=== PATIENT | female | born 1955 | race Asian ===

== ENCOUNTER 2022-08-23 14:46 | Inpatient (IN) | payer OTHER ==
[~2022-08-23] VITALS: Ht 149.9 cm; Wt 44.5 kg
[2022-08-23 15:37] VITALS: BP_SYST 119
[2022-08-23] MEDS ORDERED: NACL 0.9% 1,000 ML IV ONE (16:30)
[2022-08-23] MEDS ORDERED: MORPHINE 4 MG INJ. 4 MG/ML VIAL IVP ONE (16:30)
[2022-08-23 16:52] LABS: BASOPHILS % (AUTO) 0.2 % (0.0-2.0); HEMATOCRIT 43.5 % (36-48); HEMOGLOBIN 14.6 g/dL (12.0-16.0); LYMPHOCYTES # (AUTO) 0.7 K/uL (1.0-5.5); LYMPHOCYTES % (AUTO) 4.6 % (20.5-51.5); MEAN CORPUSCULAR HEMOGLOBIN 32 pg (27-31); MEAN CORPUSCULAR HGB CONC 34 % (32-36); MEAN CORPUSCULAR VOLUME 95 fL (79.0-98.0); MONOCYTES # (AUTO) 0.6 K/uL (0.0-1.0); MONOCYTES % (AUTO) 3.5 % (1.7-9.3); NEUTROPHILS # (AUTO) 14.3 K/uL (1.8-7.7); NEUTROPHILS % (AUTO) 91.7 % (40.0-70.0); PLATELET COUNT (AUTO) 273 K/uL (130-430); RED BLOOD CELL COUNT(AUTO) 4.56 MIL/uL (4.2-6.2); WHITE BLOOD COUNT (AUTO) 15.6 K/uL (4.8-10.8)
[2022-08-23 17:01] LABS: CALCIUM 9.8 mg/dL (8.4-11.0); CREATININE 0.69 mg/dL (0.55-1.30)
[2022-08-23 17:06] LABS: ALBUMIN 4.1 g/dL (3.4-4.8); TOTAL BILIRUBIN 0.6 mg/dL (0.0-1.0)
[2022-08-23] MEDS ORDERED: LIP20 PO (20:15)
[2022-08-23] MEDS ORDERED: LEVO25CA4 PO (20:17)
[2022-08-23 21:46] VITALS: BP_SYST 111
[2022-08-23 22:00] VITALS: BP_SYST 111
[2022-08-24] VITALS (8 sets, daily range): BP systolic 105–138
[2022-08-24] MEDS ORDERED: GASTROGRAFIN 120 ML ONE (08:56)
[2022-08-24] MEDS: D5/0.45 NS 1,000 ML IV SCH ×2 (09:11→20:21)
[2022-08-24] MEDS: KETOROLAC TROMETHAMINE 15 MG VIAL IVP PRN (09:12)
[2022-08-24] MEDS ORDERED: MINERAL OIL 30 ML UDC PO ONE (09:30)
[2022-08-24] MEDS ORDERED: POLYETHYLENE GLYCOL 3350, 17 GM/ POWD.PACK PO PRN (09:30)
[2022-08-24] MEDS ORDERED: ATORVASTATIN 20 MG TABLET PO ONE (12:45)
[2022-08-24] MEDS ORDERED: LEVOTHYROXINE SODIUM 0.025 MG TABLET PO ONE (13:15)
[2022-08-25] VITALS: BP_SYST 106
[2022-08-25] MEDS: LEVOTHYROXINE SODIUM 0.025 MG TABLET PO SCH (06:01)
[2022-08-25] MEDS: D5/0.45 NS 1,000 ML IV SCH ×2 (06:01→18:19)
[2022-08-25 06:43] LABS: BASOPHILS % (AUTO) 0.7 % (0.0-2.0); EOSINOPHILS # (AUTO) 0.1 K/uL (0.0-0.4); EOSINOPHILS % (AUTO) 1.3 % (0.0-4.0); HEMATOCRIT 40.5 % (36-48); HEMOGLOBIN 13.8 g/dL (12.0-16.0); LYMPHOCYTES % (AUTO) 20.8 % (20.5-51.5); MEAN CORPUSCULAR HEMOGLOBIN 33 pg (27-31); MEAN CORPUSCULAR HGB CONC 34 % (32-36); MEAN CORPUSCULAR VOLUME 96 fL (79.0-98.0); MONOCYTES # (AUTO) 0.7 K/uL (0.0-1.0); MONOCYTES % (AUTO) 15.7 % (1.7-9.3); NEUTROPHILS # (AUTO) 2.9 K/uL (1.8-7.7); NEUTROPHILS % (AUTO) 61.5 % (40.0-70.0); PLATELET COUNT (AUTO) 257 K/uL (130-430); RED BLOOD CELL COUNT(AUTO) 4.22 MIL/uL (4.2-6.2); WHITE BLOOD COUNT (AUTO) 4.8 K/uL (4.8-10.8)
[2022-08-25 06:59] LABS: ALBUMIN 3.5 g/dL (3.4-4.8); CALCIUM 8.6 mg/dL (8.4-11.0); CREATININE 0.75 mg/dL (0.55-1.30); TOTAL BILIRUBIN 0.4 mg/dL (0.0-1.0)
[2022-08-25 08:26] VITALS: BP_SYST 107
[2022-08-25] MEDS: ATORVASTATIN 20 MG TABLET PO SCH (09:08)
[2022-08-25 11:10] VITALS: BP_SYST 110
[2022-08-25] MEDS: AMPICILLIN SODIUM/SULBACTAM NA 1.5 GM in NS 50 ML IV SCH ×2 (12:55→18:20)
[2022-08-25 15:10] VITALS: BP_SYST 126
[2022-08-25] MEDS ORDERED: BISACODYL 5 MG TABLET.DR (DULCOLAX) PO ONE (17:00)
[2022-08-25] MEDS ORDERED: GOLYTELY / COLYTE SOLUTION 4 LITERS PO ONE (18:00)
[2022-08-25 22:52] VITALS: BP_SYST 134
[2022-08-25 22:53] VITALS: BP_SYST 134
[2022-08-26] VITALS: BP_SYST 114
[2022-08-26] MEDS: D5/0.45 NS 1,000 ML IV SCH ×3 (00:35→22:31)
[2022-08-26] MEDS: AMPICILLIN SODIUM/SULBACTAM NA 1.5 GM in NS 50 ML IV SCH ×5 (00:35→23:41)
[2022-08-26] MEDS: LEVOTHYROXINE SODIUM 0.025 MG TABLET PO SCH (06:26)
[2022-08-26 07:00] LABS: BASOPHILS % (AUTO) 0.6 % (0.0-2.0); EOSINOPHILS # (AUTO) 0.1 K/uL (0.0-0.4); EOSINOPHILS % (AUTO) 2.3 % (0.0-4.0); HEMATOCRIT 37.9 % (36-48); HEMOGLOBIN 12.8 g/dL (12.0-16.0); LYMPHOCYTES # (AUTO) 1.4 K/uL (1.0-5.5); LYMPHOCYTES % (AUTO) 28.9 % (20.5-51.5); MEAN CORPUSCULAR HEMOGLOBIN 32 pg (27-31); MEAN CORPUSCULAR HGB CONC 34 % (32-36); MEAN CORPUSCULAR VOLUME 96 fL (79.0-98.0); MONOCYTES # (AUTO) 0.6 K/uL (0.0-1.0); MONOCYTES % (AUTO) 12.3 % (1.7-9.3); NEUTROPHILS # (AUTO) 2.7 K/uL (1.8-7.7); NEUTROPHILS % (AUTO) 55.9 % (40.0-70.0); PLATELET COUNT (AUTO) 261 K/uL (130-430); RED BLOOD CELL COUNT(AUTO) 3.95 MIL/uL (4.2-6.2); RED CELL DISTRIBUTION WIDTH 13.4 % (9.0-15.0); WHITE BLOOD COUNT (AUTO) 4.8 K/uL (4.8-10.8)
[2022-08-26 07:45] LABS: ALBUMIN 3.1 g/dL (3.4-4.8); CALCIUM 8.1 mg/dL (8.4-11.0); CREATININE 0.66 mg/dL (0.55-1.30); TOTAL BILIRUBIN 0.3 mg/dL (0.0-1.0)
[2022-08-26 08:07] VITALS: BP_SYST 106
[2022-08-26] MEDS ORDERED: SIMETHICONE 40 MG/0.6 ML ML ONE (08:50)
[2022-08-26] MEDS ORDERED: MEPERIDINE HCL/PF 25 MG/ML DISP.SYRIN ONE (08:50)
[2022-08-26] MEDS ORDERED: MIDAZOLAM HCL 5 MG/5 ML VIAL ONE ×2 (08:51→09:41)
[2022-08-26] MEDS: ATORVASTATIN 20 MG TABLET PO SCH (10:29)
[2022-08-26] MEDS ORDERED: SIMETHICONE 80 MG TAB.CHEW PO ONE (10:30)
[2022-08-26] MEDS: KETOROLAC TROMETHAMINE 15 MG VIAL IVP PRN (10:32)
[2022-08-26] MEDS: POTASSIUM CHLORIDE 20 MEQ/PKT PACKET PO SCH ×2 (11:26→15:48)
[2022-08-26 11:55] VITALS: BP_SYST 120
[2022-08-26 17:32] VITALS: BP_SYST 127
[2022-08-26 20:00] VITALS: BP_SYST 125
[2022-08-27] VITALS: BP_SYST 102
[2022-08-27] MEDS: LEVOTHYROXINE SODIUM 0.025 MG TABLET PO SCH (06:31)
[2022-08-27] MEDS: D5/0.45 NS 1,000 ML IV SCH (06:31)
[2022-08-27] MEDS: AMPICILLIN SODIUM/SULBACTAM NA 1.5 GM in NS 50 ML IV SCH ×2 (06:32→12:10)
[2022-08-27 08:23] VITALS: BP_SYST 110
[2022-08-27] MEDS: ATORVASTATIN 20 MG TABLET PO SCH (09:15)
[2022-08-27 09:25] LABS: BASOPHILS % (AUTO) 0.6 % (0.0-2.0); EOSINOPHILS # (AUTO) 0.1 K/uL (0.0-0.4); EOSINOPHILS % (AUTO) 2.5 % (0.0-4.0); HEMATOCRIT 41.6 % (36-48); HEMOGLOBIN 13.7 g/dL (12.0-16.0); LYMPHOCYTES # (AUTO) 1.3 K/uL (1.0-5.5); LYMPHOCYTES % (AUTO) 29.4 % (20.5-51.5); MEAN CORPUSCULAR HEMOGLOBIN 32 pg (27-31); MEAN CORPUSCULAR HGB CONC 33 % (32-36); MEAN CORPUSCULAR VOLUME 96 fL (79.0-98.0); MONOCYTES # (AUTO) 0.4 K/uL (0.0-1.0); NEUTROPHILS # (AUTO) 2.7 K/uL (1.8-7.7); NEUTROPHILS % (AUTO) 58.5 % (40.0-70.0); PLATELET COUNT (AUTO) 266 K/uL (130-430); RED BLOOD CELL COUNT(AUTO) 4.35 MIL/uL (4.2-6.2); RED CELL DISTRIBUTION WIDTH 13.3 % (9.0-15.0); WHITE BLOOD COUNT (AUTO) 4.6 K/uL (4.8-10.8)
[2022-08-27 09:27] LABS: ERYTHROCYTE SEDIMENTATION RATE 19 MM/HR (0-20)
[2022-08-27 09:34] LABS: ANION GAP 9 (5-15); C-REACTIVE PROTEIN QUANT < 0.2 mg/dL (0-0.5); CALCIUM 8.5 mg/dL (8.4-11.0); CHLORIDE 105 mmol/L (98-107); CREATININE 0.64 mg/dL (0.55-1.30); GLUCOSE 123 mg/dL (70-99); UREA NITROGEN, BLOOD 6 mg/dL (8-21)
[2022-08-27 09:35] LABS: GFR AFRICAN AMERICAN 119 mL/min (>90)
[2022-08-27 12:00] VITALS: BP_SYST 128
[2022-08-27 14:27] VITALS: BP_SYST 128
== END 2022-08-27 17:00 | disposition home health service (06) | DRG 389 ==
LOC: SED 14:46 → SMU 19:54
PROVIDERS: ADMIT Internal Medicine; ATTEND Internal Medicine
PROC: 0DBN8ZX Excision of Sigmoid Colon, Via Natural or Artificial Opening Endoscopic, Diagnostic (ICD-10-PCS; principal; 2022-08-26 09:00)
DX: K56.609 Unspecified intestinal obstruction, unspecified as to partial versus complete obstruction (principal); Q43.8 Other specified congenital malformations of intestine; K52.9 Noninfective gastroenteritis and colitis, unspecified; K56.7 Ileus, unspecified; K64.8 Other hemorrhoids; E03.9 Hypothyroidism, unspecified; D72.829 Elevated white blood cell count, unspecified; R73.9 Hyperglycemia, unspecified; Z20.822 Contact with and (suspected) exposure to COVID-19; I10 Essential (primary) hypertension; Z90.49 Acquired absence of other specified parts of digestive tract
CPT/HCPCS: 36415; 45380; 74250-TC; 76376; 80048; 80053; 83605; 85025; 85651-TC; 86140; 87040; 88305; 96365; 96375; 99285; J0295; J1885; J1956; J2175; J2250; J2270; Q9963

== ENCOUNTER 2022-12-08 11:59 | Inpatient (IN) | payer OTHER ==
[~2022-12-08] VITALS: Ht 149.9 cm; Wt 44.5 kg
[~2022-12-08 11:59] MED LIST: LEVO25CA4 PO; LIP20 PO
[2022-12-08 13:10] VITALS: BP_SYST 115
[2022-12-08 13:27] LABS: BASOPHILS % (AUTO) 0.3 % (0.0-2.0); EOSINOPHILS % (AUTO) 0.2 % (0.0-4.0); HEMATOCRIT 36.9 % (36-48); HEMOGLOBIN 12.3 g/dL (12.0-16.0); LYMPHOCYTES # (AUTO) 1.5 K/uL (1.0-5.5); LYMPHOCYTES % (AUTO) 9.7 % (20.5-51.5); MEAN CORPUSCULAR HEMOGLOBIN 31 pg (27-31); MEAN CORPUSCULAR HGB CONC 33 % (32-36); MEAN CORPUSCULAR VOLUME 95 fL (79.0-98.0); MONOCYTES # (AUTO) 0.7 K/uL (0.0-1.0); MONOCYTES % (AUTO) 4.5 % (1.7-9.3); NEUTROPHILS # (AUTO) 13.5 K/uL (1.8-7.7); NEUTROPHILS % (AUTO) 85.3 % (40.0-70.0); PLATELET COUNT (AUTO) 375 K/uL (130-430); RED BLOOD CELL COUNT(AUTO) 3.91 MIL/uL (4.2-6.2); RED CELL DISTRIBUTION WIDTH 13.4 % (9.0-15.0); WHITE BLOOD COUNT (AUTO) 15.9 K/uL (4.8-10.8)
[2022-12-08 13:45] LABS: CALCIUM 8.7 mg/dL (8.4-11.0); CREATININE 0.55 mg/dL (0.55-1.30)
[2022-12-08 13:50] LABS: ALBUMIN 3.4 g/dL (3.4-4.8); TOTAL BILIRUBIN 0.5 mg/dL (0.0-1.0)
[2022-12-08] MEDS ORDERED: MORPHINE 4 MG INJ. 4 MG/ML VIAL IVP ONE (16:15)
[2022-12-08] MEDS ORDERED: PIPERACILLIN/TAZO 3.375 GM in NS 50 ML IV ONE (16:15)
[2022-12-08 16:51] LABS: BILIRUBIN,URINE NEGATIVE (NEGATIVE); BLOOD, URINE 1+ (NEGATIVE); CLARITY/URINE CLEAR (CLEAR); COLOR,URINE YELLOW (YELLOW); GLUCOSE,URINE NEGATIVE (NEGATIVE); KETONES,URINE 3+ (NEGATIVE); LEUKOCYTE ESTERASE ,URINE NEGATIVE (NEGATIVE); NITRITE, URINE NEGATIVE (NEGATIVE); PROTEIN URINE NEGATIVE (NEGATIVE); UROBILINOGEN,URINE 0.2 (0.2-1.0)
[2022-12-08] MEDS ORDERED: PIPERACILLIN/TAZOBACTAM 3.375 GM/VIAL (ZOSYN) IV ONE (17:02)
[2022-12-08 17:06] LABS: BACTERIA,URINE RARE /HPF (None Seen)
[2022-12-08 20:58] VITALS: BP_SYST 100
[2022-12-08] MEDS ORDERED: MORPHINE 2 MG/ML INJ. SYRINGE IVP PRN (22:45)
[2022-12-09 01:23] VITALS: BP_SYST 98
[2022-12-09] MEDS: PIPERACILLIN/TAZO 3.375 GM in NS 50 ML IV SCH ×2 (01:36→10:10)
[2022-12-09 07:24] LABS: BASOPHILS % (AUTO) 0.3 % (0.0-2.0); EOSINOPHILS # (AUTO) 0.1 K/uL (0.0-0.4); EOSINOPHILS % (AUTO) 1.2 % (0.0-4.0); HEMOGLOBIN 10.4 g/dL (12.0-16.0); LYMPHOCYTES # (AUTO) 1.4 K/uL (1.0-5.5); LYMPHOCYTES % (AUTO) 18.5 % (20.5-51.5); MEAN CORPUSCULAR HEMOGLOBIN 32 pg (27-31); MEAN CORPUSCULAR HGB CONC 34 % (32-36); MEAN CORPUSCULAR VOLUME 96 fL (79.0-98.0); MONOCYTES # (AUTO) 0.5 K/uL (0.0-1.0); MONOCYTES % (AUTO) 6.7 % (1.7-9.3); NEUTROPHILS # (AUTO) 5.6 K/uL (1.8-7.7); NEUTROPHILS % (AUTO) 73.3 % (40.0-70.0); PLATELET COUNT (AUTO) 333 K/uL (130-430); RED BLOOD CELL COUNT(AUTO) 3.24 MIL/uL (4.2-6.2); RED CELL DISTRIBUTION WIDTH 13.2 % (9.0-15.0); WHITE BLOOD COUNT (AUTO) 7.6 K/uL (4.8-10.8)
[2022-12-09 07:35] LABS: CALCIUM 7.9 mg/dL (8.4-11.0); CREATININE 0.62 mg/dL (0.55-1.30)
[2022-12-09 08:12] VITALS: BP_SYST 98
[2022-12-09] MEDS ORDERED: DIATR MEGLU/DIATRIZ SOD 30 ML SOLUTION PO ONE (08:24)
[2022-12-09] MEDS ORDERED: GASTROGRAFIN 120 ML ONE (08:24)
[2022-12-09] MEDS: VANCOMYCIN HCL ORAL SOLUTION 125 MG/5 ML, 150 ML PO SCH ×5 (10:30→21:31)
[2022-12-09] MEDS ORDERED: POTASSIUM CHLORIDE 20 MEQ TAB.PRT.SR PO ONE (10:45)
[2022-12-09 12:04] VITALS: BP_SYST 96
[2022-12-09 15:48] VITALS: BP_SYST 93
[2022-12-09 17:20] LABS: BASOPHILS % (AUTO) 0.5 % (0.0-2.0); EOSINOPHILS # (AUTO) 0.1 K/uL (0.0-0.4); EOSINOPHILS % (AUTO) 1.6 % (0.0-4.0); HEMATOCRIT 32.2 % (36-48); HEMOGLOBIN 10.9 g/dL (12.0-16.0); LYMPHOCYTES # (AUTO) 1.5 K/uL (1.0-5.5); LYMPHOCYTES % (AUTO) 23.7 % (20.5-51.5); MEAN CORPUSCULAR HEMOGLOBIN 32 pg (27-31); MEAN CORPUSCULAR HGB CONC 34 % (32-36); MEAN CORPUSCULAR VOLUME 95 fL (79.0-98.0); MONOCYTES # (AUTO) 0.5 K/uL (0.0-1.0); MONOCYTES % (AUTO) 8.8 % (1.7-9.3); NEUTROPHILS % (AUTO) 65.4 % (40.0-70.0); PLATELET COUNT (AUTO) 341 K/uL (130-430); RED BLOOD CELL COUNT(AUTO) 3.38 MIL/uL (4.2-6.2); RED CELL DISTRIBUTION WIDTH 13.3 % (9.0-15.0); WHITE BLOOD COUNT (AUTO) 6.1 K/uL (4.8-10.8)
[2022-12-09 17:22] LABS: ERYTHROCYTE SEDIMENTATION RATE 26 MM/HR (0-20)
[2022-12-09 20:00] VITALS: BP_SYST 100
[2022-12-09] MEDS: metroNIDAZOLE 250 mg/NS 50 ML IV SCH (21:31)
[2022-12-10] VITALS: BP_SYST 99
[2022-12-10] MEDS: metroNIDAZOLE 250 mg/NS 50 ML IV SCH ×3 (05:33→21:41)
[2022-12-10 08:00] VITALS: BP_SYST 97
[2022-12-10] MEDS: VANCOMYCIN HCL ORAL SOLUTION 125 MG/5 ML, 150 ML PO SCH ×4 (09:10→22:20)
[2022-12-10 16:00] VITALS: BP_SYST 101
[2022-12-10 20:00] VITALS: BP_SYST 98
[2022-12-10] MEDS: ZOLPIDEM TARTRATE 5 MG TABLET PO PRN (22:30)
[2022-12-11] MEDS ORDERED: DICYCLOMINE HCL 10 MG/5 ML SOLUTION ONE ×2 (01:55→02:07)
[2022-12-11 01:57] VITALS: BP_SYST 98
[2022-12-11] MEDS: DICYCLOMINE HCL 10 MG/5 ML SOLUTION PO SCH ×5 (02:07→20:42)
[2022-12-11] MEDS: metroNIDAZOLE 250 mg/NS 50 ML IV SCH ×3 (05:23→21:11)
[2022-12-11 06:00] LABS: BASOPHILS % (AUTO) 1.2 % (0.0-2.0); EOSINOPHILS # (AUTO) 0.1 K/uL (0.0-0.4); HEMOGLOBIN 10.2 g/dL (12.0-16.0); LYMPHOCYTES # (AUTO) 1.4 K/uL (1.0-5.5); LYMPHOCYTES % (AUTO) 38.9 % (20.5-51.5); MEAN CORPUSCULAR HEMOGLOBIN 32 pg (27-31); MEAN CORPUSCULAR HGB CONC 34 % (32-36); MEAN CORPUSCULAR VOLUME 95 fL (79.0-98.0); MONOCYTES # (AUTO) 0.4 K/uL (0.0-1.0); MONOCYTES % (AUTO) 11.4 % (1.7-9.3); NEUTROPHILS # (AUTO) 1.7 K/uL (1.8-7.7); NEUTROPHILS % (AUTO) 45.5 % (40.0-70.0); PLATELET COUNT (AUTO) 364 K/uL (130-430); RED BLOOD CELL COUNT(AUTO) 3.17 MIL/uL (4.2-6.2); RED CELL DISTRIBUTION WIDTH 13.1 % (9.0-15.0); WHITE BLOOD COUNT (AUTO) 3.7 K/uL (4.8-10.8)
[2022-12-11 07:58] LABS: ALANINE AMINOTRANSFERASE 16 U/L (12-78); ALBUMIN 3.1 g/dL (3.4-4.8); ANION GAP 10 (5-15); ASPARTATE AMINOTRANSFERASE 18 U/L (10-37); CALCIUM 8.1 mg/dL (8.4-11.0); CHLORIDE 105 mmol/L (98-107); CREATININE 0.53 mg/dL (0.55-1.30); GFR AFRICAN AMERICAN 148 mL/min (>90); GLUCOSE 88 mg/dL (70-99); LIPASE 161 U/L (73-393); TOTAL BILIRUBIN 0.3 mg/dL (0.0-1.0); UREA NITROGEN, BLOOD 4 mg/dL (8-21)
[2022-12-11 08:00] VITALS: BP_SYST 99
[2022-12-11 08:00] LABS: C-REACTIVE PROTEIN QUANT < 0.2 mg/dL (0-0.5)
[2022-12-11] MEDS: VANCOMYCIN HCL ORAL SOLUTION 125 MG/5 ML, 150 ML PO SCH ×4 (09:05→20:42)
[2022-12-11 12:05] VITALS: BP_SYST 110
[2022-12-11] MEDS: ZOLPIDEM TARTRATE 5 MG TABLET PO PRN (22:56)
[2022-12-12 02:06] VITALS: BP_SYST 106
[2022-12-12] MEDS: metroNIDAZOLE 250 mg/NS 50 ML IV SCH ×3 (06:30→21:41)
[2022-12-12 06:32] LABS: BASOPHILS # (AUTO) 0.1 K/uL (0.0-0.2); BASOPHILS % (AUTO) 1.2 % (0.0-2.0); EOSINOPHILS # (AUTO) 0.1 K/uL (0.0-0.4); EOSINOPHILS % (AUTO) 2.3 % (0.0-4.0); HEMATOCRIT 30.8 % (36-48); HEMOGLOBIN 10.6 g/dL (12.0-16.0); LYMPHOCYTES # (AUTO) 1.7 K/uL (1.0-5.5); LYMPHOCYTES % (AUTO) 35.9 % (20.5-51.5); MEAN CORPUSCULAR HEMOGLOBIN 33 pg (27-31); MEAN CORPUSCULAR HGB CONC 35 % (32-36); MEAN CORPUSCULAR VOLUME 95 fL (79.0-98.0); MONOCYTES # (AUTO) 0.5 K/uL (0.0-1.0); MONOCYTES % (AUTO) 9.7 % (1.7-9.3); NEUTROPHILS # (AUTO) 2.4 K/uL (1.8-7.7); NEUTROPHILS % (AUTO) 50.9 % (40.0-70.0); PLATELET COUNT (AUTO) 374 K/uL (130-430); RED BLOOD CELL COUNT(AUTO) 3.25 MIL/uL (4.2-6.2); RED CELL DISTRIBUTION WIDTH 13.1 % (9.0-15.0); WHITE BLOOD COUNT (AUTO) 4.7 K/uL (4.8-10.8)
[2022-12-12 06:54] LABS: CALCIUM 8.7 mg/dL (8.4-11.0); CREATININE 0.65 mg/dL (0.55-1.30)
[2022-12-12 08:21] VITALS: BP_SYST 104
[2022-12-12] MEDS: VANCOMYCIN HCL ORAL SOLUTION 125 MG/5 ML, 150 ML PO SCH ×4 (09:58→21:43)
[2022-12-12] MEDS: DICYCLOMINE HCL 10 MG/5 ML SOLUTION PO SCH ×4 (10:00→22:01)
[2022-12-12 12:00] VITALS: BP_SYST 96
[2022-12-12 17:30] VITALS: BP_SYST 98
[2022-12-12 20:00] VITALS: BP_SYST 110
[2022-12-12] MEDS: ZOLPIDEM TARTRATE 5 MG TABLET PO PRN (21:43)
[2022-12-13 01:59] VITALS: BP_SYST 110
[2022-12-13] MEDS: metroNIDAZOLE 250 mg/NS 50 ML IV SCH ×2 (05:34→13:44)
[2022-12-13 07:07] LABS: EOSINOPHILS # (AUTO) 0.1 K/uL (0.0-0.4); EOSINOPHILS % (AUTO) 3.1 % (0.0-4.0); HEMATOCRIT 30.4 % (36-48); HEMOGLOBIN 10.5 g/dL (12.0-16.0); LYMPHOCYTES # (AUTO) 1.4 K/uL (1.0-5.5); LYMPHOCYTES % (AUTO) 36.6 % (20.5-51.5); MEAN CORPUSCULAR HEMOGLOBIN 33 pg (27-31); MEAN CORPUSCULAR HGB CONC 34 % (32-36); MEAN CORPUSCULAR VOLUME 96 fL (79.0-98.0); MONOCYTES # (AUTO) 0.4 K/uL (0.0-1.0); MONOCYTES % (AUTO) 10.6 % (1.7-9.3); NEUTROPHILS # (AUTO) 1.9 K/uL (1.8-7.7); NEUTROPHILS % (AUTO) 48.7 % (40.0-70.0); PLATELET COUNT (AUTO) 363 K/uL (130-430); RED BLOOD CELL COUNT(AUTO) 3.18 MIL/uL (4.2-6.2); RED CELL DISTRIBUTION WIDTH 13.5 % (9.0-15.0); WHITE BLOOD COUNT (AUTO) 3.8 K/uL (4.8-10.8)
[2022-12-13 07:54] VITALS: BP_SYST 93
[2022-12-13 07:54] LABS: CALCIUM 8.1 mg/dL (8.4-11.0); CREATININE 0.56 mg/dL (0.55-1.30)
[2022-12-13 08:05] LABS: TOTAL IRON BIND. CAPACITY 270 ug/dL (250-450)
[2022-12-13] MEDS: DICYCLOMINE HCL 10 MG/5 ML SOLUTION PO SCH ×2 (09:01→13:34)
[2022-12-13] MEDS: VANCOMYCIN HCL ORAL SOLUTION 125 MG/5 ML, 150 ML PO SCH ×2 (09:21→13:34)
[2022-12-13] MEDS ORDERED: ZOLP5TAB2 PO (11:58)
[2022-12-13] MEDS ORDERED: DICYCLOMINE HCL PO (11:58)
[2022-12-13] MEDS ORDERED: METR-154 PO (11:58)
[2022-12-13 13:05] VITALS: BP_SYST 100
[2022-12-13 13:49] VITALS: BP_SYST 100
== END 2022-12-13 15:00 | disposition home or self-care (01) | DRG 392 ==
LOC: SED 11:59 → SMU 19:41
PROVIDERS: ADMIT Specialist; ATTEND Family Medicine
DX: K52.9 Noninfective gastroenteritis and colitis, unspecified (principal); E44.0 Moderate protein-calorie malnutrition; Z68.1 Body mass index [BMI] 19.9 or less, adult; E87.6 Hypokalemia; E78.5 Hyperlipidemia, unspecified; E03.9 Hypothyroidism, unspecified; Z90.49 Acquired absence of other specified parts of digestive tract; Z90.710 Acquired absence of both cervix and uterus; D63.8 Anemia in other chronic diseases classified elsewhere
CPT/HCPCS: 36415; 76376; 80048; 80053; 81000; 82272; 83540; 83550; 83605; 83690; 85025; 85651-TC; 86140; 86480; 86886; 86900; 86901; 87040; 87045-TC; 87046; 87081; 87177; 87230-TC; 96374; 96375; 99285; J2270; J2543; J3490; Q9963; Q9964

== ENCOUNTER 2022-12-22 06:32 | Day surgery (SDC) | payer OTHER ==
[~2022-12-22] VITALS: Ht 147.3 cm; Wt 41.3 kg
[~2022-12-22 06:32] MED LIST changes: +METR-154 PO
[2022-12-22] MEDS ORDERED: SIMETHICONE 40 MG/0.6 ML ML ONE (06:55)
[2022-12-22 07:18] LABS: BASOPHILS # (AUTO) 0.1 K/uL (0.0-0.2); BASOPHILS % (AUTO) 1.4 % (0.0-2.0); EOSINOPHILS % (AUTO) 0.8 % (0.0-4.0); HEMOGLOBIN 11.2 g/dL (12.0-16.0); LYMPHOCYTES # (AUTO) 1.2 K/uL (1.0-5.5); LYMPHOCYTES % (AUTO) 30.3 % (20.5-51.5); MEAN CORPUSCULAR HEMOGLOBIN 32 pg (27-31); MEAN CORPUSCULAR HGB CONC 33 % (32-36); MEAN CORPUSCULAR VOLUME 98 fL (79.0-98.0); MONOCYTES # (AUTO) 0.4 K/uL (0.0-1.0); NEUTROPHILS # (AUTO) 2.3 K/uL (1.8-7.7); NEUTROPHILS % (AUTO) 58.5 % (40.0-70.0); PLATELET COUNT (AUTO) 369 K/uL (130-430); RED BLOOD CELL COUNT(AUTO) 3.46 MIL/uL (4.2-6.2); RED CELL DISTRIBUTION WIDTH 14.9 % (9.0-15.0)
[2022-12-22 07:28] LABS: CALCIUM 8.7 mg/dL (8.4-11.0); CREATININE 0.61 mg/dL (0.55-1.30)
[2022-12-22 07:33] LABS: ALBUMIN 4.2 g/dL (3.4-4.8); TOTAL BILIRUBIN 0.5 mg/dL (0.0-1.0)
[2022-12-22] MEDS ORDERED: NS 1000 ML IV.SOLN IV ONE (09:05)
[2022-12-22] MEDS ORDERED: LIDOCAINE 2%, 20 ML MDV ONE (09:05)
[2022-12-22] MEDS ORDERED: PROPOFOL 200MG/ 20ML VIAL (DIPRIVAN) IV ONE (09:05)
[2022-12-22 13:53] VITALS: BP_SYST 126
== END 2022-12-22 13:30 | disposition home or self-care (01) ==
LOC: SDS 06:32 → SMU 06:39 → SDS 13:30
PROVIDERS: ATTEND Internal Medicine Gastroenterology
DX: R19.4 Change in bowel habit (principal); K64.8 Other hemorrhoids; E78.5 Hyperlipidemia, unspecified; E03.9 Hypothyroidism, unspecified
CPT/HCPCS: 45380; 71045; 80053; 85025; 36415; 93005; 88305; G0378; J2001; J2704; J7030

== ENCOUNTER 2023-02-20 16:09 | Inpatient (IN) | payer OTHER ==
[~2023-02-20] VITALS: Ht 147.3 cm; Wt 50.3 kg
[2023-02-20 16:20] VITALS: BP_SYST 89; PULSE 107; RESP 18; TEMP 98.3; O2SAT 96
[2023-02-20] MEDS ORDERED: NS IRRIG SOLN 1000 ML IR ONE ×2 (16:45→20:40)
[2023-02-20] MEDS ORDERED: LR 1,000 ML IV.SOLN IV ONE ×2 (16:45→20:40)
[2023-02-20] MEDS ORDERED: KETOROLAC TROMETHAMINE 30 MG VIAL IVP ONE (17:00)
[2023-02-20] MEDS ORDERED: NACL 0.9% 1,000 ML IV ONE (17:00)
[2023-02-20] MEDS ORDERED: PIPERACILLIN/TAZO 3.375 GM in NS 50 ML IV ONE (17:30)
[2023-02-20] MEDS ORDERED: PIPERACILLIN/TAZOBACTAM 3.375 GM/VIAL (ZOSYN) IV ONE (17:48)
[2023-02-20 18:10] LABS: HEMATOCRIT 38.6 % (36-48); HEMOGLOBIN 12.6 g/dL (12.0-16.0); MEAN CORPUSCULAR HEMOGLOBIN 32 pg (27-31); MEAN CORPUSCULAR HGB CONC 33 % (32-36); MEAN CORPUSCULAR VOLUME 97 fL (79.0-98.0); PLATELET COUNT (AUTO) 201 K/uL (130-430); RED BLOOD CELL COUNT(AUTO) 3.99 MIL/uL (4.2-6.2)
[2023-02-20 18:12] LABS: ALBUMIN 3.3 g/dL (3.4-4.8); CALCIUM 8.9 mg/dL (8.4-11.0); CREATININE 0.68 mg/dL (0.55-1.30); POTASSIUM 3.9 mmol/L (3.5-5.1); TOTAL BILIRUBIN 0.8 mg/dL (0.0-1.0); TOTAL PROTEIN, SERUM 6.4 g/dL (6.4-8.3)
[2023-02-20 18:43] LABS: BAND % (MANUAL) 47 % (0-6); BASOPHILS % (MANUAL) 0 % (0-2); EOSINOPHILS % (MANUAL) 0 % (0-7); LYMPHOCYTES % (MANUAL) 10 % (20-46); MONOCYTES % (MANUAL) 2 % (0-11)
[2023-02-20 18:44] LABS: PLATELET ESTIMATE ADEQUATE (ADEQUATE)
[2023-02-20 19:16] LABS: INR 1.1 (0.8-1.2); PROTHROMBIN TIME 11.7 SECS (9.5-12.5)
[2023-02-20] MEDS ORDERED: LR 1,000 ML IV ONE (19:30)
[2023-02-20 20:28] LABS: CLARITY/URINE SLIGHTLY CLOUDY (CLEAR); COLOR,URINE YELLOW (YELLOW); PH,URINE 5.5 (5.0-8.0)
[2023-02-20 20:29] LABS: BILIRUBIN,URINE NEGATIVE (NEGATIVE); GLUCOSE,URINE NEGATIVE (NEGATIVE); KETONES,URINE TRACE (NEGATIVE); LEUKOCYTE ESTERASE ,URINE NEGATIVE (NEGATIVE); NITRITE, URINE NEGATIVE (NEGATIVE); PROTEIN URINE 1+ (NEGATIVE); UROBILINOGEN,URINE 0.2 (0.2-1.0)
[2023-02-20 20:30] LABS: BLOOD, URINE TRACE (NEGATIVE)
[2023-02-20 20:31] LABS: BACTERIA,URINE None Seen /HPF (None Seen); MUCUS,URINE 1+ /LPF (None Seen); WBC,URINE 0-3 /HPF (0-3)
[2023-02-20] MEDS ORDERED: GLYCOPYRROLATE 0.2 MG/ML VIAL ONE (20:40)
[2023-02-20] MEDS ORDERED: PHENYLEPHRINE HCL 10 MG/ML VIAL (NEOSYNEPHRINE) ONE (20:40)
[2023-02-20] MEDS ORDERED: fentaNYL CITRATE/PF 100 MCG/2 ML AMP ONE (20:40)
[2023-02-20] MEDS ORDERED: MIDAZOLAM HCL/PF 2 MG/2 ML SYRINGE ONE (20:40)
[2023-02-20] MEDS ORDERED: BUPIVACAINE /PF 0.25% 30 ML VIAL INJ ONE (20:40)
[2023-02-20] MEDS ORDERED: PROPOFOL 200MG/ 20ML VIAL (DIPRIVAN) IV ONE (20:40)
[2023-02-20] MEDS ORDERED: ROCURONIUM BROMIDE 10 MG/ML (ZEMURON) ONE (20:40)
[2023-02-20] MEDS ORDERED: SEVOFLURANE 15 MIN GAS INH ONE (20:40)
[2023-02-20] MEDS ORDERED: fentaNYL CITRATE/PF 100 MCG/2 ML AMP IVP PRN ×2 (21:15)
[2023-02-20] MEDS ORDERED: ACETAMINOPHEN I.V. 1000 MG 100 ML IV ONE (21:15)
[2023-02-20] MEDS ORDERED: METOCLOPRAMIDE HCL 10 MG/2 ML VIAL IVP PRN (21:15)
[2023-02-20] MEDS ORDERED: BUPIVACAINE LIPOSOME/PF 266 MG/20 ML VIAL INFIL ONE (21:15)
[2023-02-20] MEDS ORDERED: ONDANSETRON HCL 4 MG/2 ML VIAL IVP PRN ×2 (21:15→22:15)
[2023-02-20] MEDS: D5/0.45 NS 1,000 ML IV SCH (21:30)
[2023-02-20] MEDS: LR 1,000 ML IV SCH (22:15)
[2023-02-20] MEDS ORDERED: HYDROmorphone 1 MG/ML INJ. CARTRIDGE IM PRN (22:15)
[2023-02-20] MEDS: fentaNYL CITRATE/PF 100 MCG/2 ML AMP ONE ×2 (22:50→22:52)
[2023-02-20 23:44] VITALS: BP_SYST 112; PULSE 92; RESP 16; TEMP 97.9
[2023-02-21] VITALS (8 sets, daily range): BP systolic 112–130; PULSE 92–98; RESP 17–18; TEMP 97.2–98.7; O2SAT 93–97
[2023-02-21] MEDS: D5/0.45 NS 1,000 ML IV SCH ×4 (00:07→21:12)
[2023-02-21] MEDS: LR 1,000 ML IV SCH ×4 (00:16→21:11)
[2023-02-21] MEDS: PIPERACILLIN/TAZO 3.375 GM in NS 50 ML IV SCH ×4 (00:31→21:12)
[2023-02-21] MEDS ORDERED: *TPN PER PHARMACY XX PRN (12:00)
[2023-02-21] MEDS ORDERED: DEXTROSE 50% JECT 50 ML DISP.SYRIN IVP PRN (12:00)
[2023-02-21] MEDS ORDERED: HYDROmorphone 1 MG/ML INJ. CARTRIDGE IVP PRN (21:15)
[2023-02-21] MEDS ORDERED: NALOXONE HCL 0.4 MG/ML AMP (NARCAN) IVP PRN (21:15)
[2023-02-22 00:35] VITALS: BP_SYST 108; PULSE 98; RESP 17; TEMP 98.4; O2SAT 93
[2023-02-22] MEDS: HYDROmorphone 1 MG/ML INJ. CARTRIDGE IVP PRN ×2 (04:54→21:56)
[2023-02-22 05:16] LABS: BASOPHILS % (AUTO) 0.1 % (0.0-2.0); EOSINOPHILS # (AUTO) 0.1 K/uL (0.0-0.4); EOSINOPHILS % (AUTO) 0.6 % (0.0-4.0); HEMOGLOBIN 10.8 g/dL (12.0-16.0); LYMPHOCYTES # (AUTO) 0.6 K/uL (1.0-5.5); LYMPHOCYTES % (AUTO) 5.7 % (20.5-51.5); MEAN CORPUSCULAR HEMOGLOBIN 31 pg (27-31); MEAN CORPUSCULAR HGB CONC 33 % (32-36); MEAN CORPUSCULAR VOLUME 95 fL (79.0-98.0); MONOCYTES # (AUTO) 0.3 K/uL (0.0-1.0); MONOCYTES % (AUTO) 3.4 % (1.7-9.3); NEUTROPHILS # (AUTO) 8.7 K/uL (1.8-7.7); NEUTROPHILS % (AUTO) 90.2 % (40.0-70.0); PLATELET COUNT (AUTO) 212 K/uL (130-430); RED BLOOD CELL COUNT(AUTO) 3.46 MIL/uL (4.2-6.2); RED CELL DISTRIBUTION WIDTH 13.8 % (9.0-15.0); WHITE BLOOD COUNT (AUTO) 9.7 K/uL (4.8-10.8)
[2023-02-22 05:50] LABS: ALBUMIN 2.1 g/dL (3.4-4.8); CALCIUM 7.8 mg/dL (8.4-11.0); CREATININE 0.54 mg/dL (0.55-1.30); PHOSPHORUS 1.8 mg/dL (2.7-4.5); POTASSIUM 3.1 mmol/L (3.5-5.1); TOTAL BILIRUBIN 0.5 mg/dL (0.0-1.0); TOTAL PROTEIN, SERUM 5.7 g/dL (6.4-8.3)
[2023-02-22] MEDS: PIPERACILLIN/TAZO 3.375 GM in NS 50 ML IV SCH ×3 (06:13→21:46)
[2023-02-22 08:00] VITALS: O2SAT 94
[2023-02-22 08:15] VITALS: BP_SYST 111; PULSE 92; RESP 18; TEMP 98.4; O2SAT 94
[2023-02-22] MEDS: HYDROcodone/ACETAMIN 5-325 MG TAB (NORCO/ VICODIN) PO PRN ×2 (08:42→20:26)
[2023-02-22] MEDS: LR 1,000 ML IV SCH ×2 (10:07→21:35)
[2023-02-22 11:39] VITALS: BP_SYST 115; PULSE 93; RESP 17; TEMP 98.6; O2SAT 95
[2023-02-22 17:50] VITALS: BP_SYST 122; PULSE 83; RESP 16; TEMP 98.9; O2SAT 96
[2023-02-22 20:00] VITALS: BP_SYST 150; PULSE 89; RESP 18; TEMP 97.3; O2SAT 97
[2023-02-22] MEDS ORDERED: POTASSIUM ACETATE IV SCH ×8 (21:00)
[2023-02-22] MEDS ORDERED: SODIUM ACETATE IV SCH ×8 (21:00)
[2023-02-22] MEDS ORDERED: [UNRECOGNIZED DRUG - OTHER] IV SCH ×8 (21:00)
[2023-02-22] MEDS ORDERED: TPN PERIPHERAL IV SCH ×8 (21:00)
[2023-02-22] MEDS: FAT EMULSIONS 250 ML IV SCH (22:34)
[2023-02-23 00:31] VITALS: BP_SYST 114; PULSE 85; RESP 16; TEMP 97.3; O2SAT 98
[2023-02-23 05:59] LABS: BASOPHILS % (AUTO) 0.3 % (0.0-2.0); EOSINOPHILS # (AUTO) 0.1 K/uL (0.0-0.4); EOSINOPHILS % (AUTO) 1.1 % (0.0-4.0); HEMATOCRIT 36.9 % (36-48); HEMOGLOBIN 11.8 g/dL (12.0-16.0); LYMPHOCYTES # (AUTO) 0.8 K/uL (1.0-5.5); LYMPHOCYTES % (AUTO) 7.4 % (20.5-51.5); MEAN CORPUSCULAR HEMOGLOBIN 30 pg (27-31); MEAN CORPUSCULAR HGB CONC 32 % (32-36); MEAN CORPUSCULAR VOLUME 95 fL (79.0-98.0); MONOCYTES # (AUTO) 0.5 K/uL (0.0-1.0); MONOCYTES % (AUTO) 4.7 % (1.7-9.3); NEUTROPHILS # (AUTO) 9.4 K/uL (1.8-7.7); NEUTROPHILS % (AUTO) 86.5 % (40.0-70.0); PLATELET COUNT (AUTO) 247 K/uL (130-430); WHITE BLOOD COUNT (AUTO) 10.8 K/uL (4.8-10.8)
[2023-02-23] MEDS: PIPERACILLIN/TAZO 3.375 GM in NS 50 ML IV SCH ×3 (06:04→22:00)
[2023-02-23] MEDS: HYDROmorphone 1 MG/ML INJ. CARTRIDGE IVP PRN ×3 (06:08→22:16)
[2023-02-23] MEDS: INSULIN REGULAR, HUMAN 100 UNITS/ML, 3 ML VIAL (humuLIN R) SUBCUT PRN ×2 (06:10→12:29)
[2023-02-23 06:18] LABS: ALBUMIN 2.2 g/dL (3.4-4.8); CALCIUM 7.8 mg/dL (8.4-11.0); CREATININE 0.51 mg/dL (0.55-1.30); PHOSPHORUS 1.5 mg/dL (2.7-4.5); POTASSIUM 3.2 mmol/L (3.5-5.1); TOTAL BILIRUBIN 0.4 mg/dL (0.0-1.0); TOTAL PROTEIN, SERUM 6.1 g/dL (6.4-8.3)
[2023-02-23 08:00] VITALS: BP_SYST 122; PULSE 91; RESP 16; TEMP 97.5; O2SAT 95
[2023-02-23 10:00] VITALS: O2SAT 95
[2023-02-23 12:00] VITALS: BP_SYST 141; PULSE 99; RESP 16; TEMP 98.9; O2SAT 96
[2023-02-23] MEDS: LR 1,000 ML IV SCH (13:47)
[2023-02-23 16:00] VITALS: BP_SYST 135; PULSE 95; RESP 16; TEMP 98.6; O2SAT 97
[2023-02-23] MEDS: SIMETHICONE 80 MG TAB.CHEW PO SCH ×2 (18:32→22:00)
[2023-02-23 20:30] VITALS: BP_SYST 144; PULSE 103; RESP 18; TEMP 98; O2SAT 97
[2023-02-23] MEDS ORDERED: TPN PERIPHERAL IV SCH ×8 (21:00)
[2023-02-23] MEDS ORDERED: SODIUM ACETATE IV SCH ×8 (21:00)
[2023-02-23] MEDS ORDERED: POTASSIUM ACETATE IV SCH ×8 (21:00)
[2023-02-23] MEDS ORDERED: [UNRECOGNIZED DRUG - OTHER] IV SCH ×8 (21:00)
[2023-02-23] MEDS: SENNOSIDES/DOCUSATE SODIUM 1 TAB TABLET(SENOKOT-S) PO SCH (22:00)
[2023-02-23] MEDS: FAT EMULSIONS 250 ML IV SCH (22:04)
[2023-02-24] MEDS: INSULIN REGULAR, HUMAN 100 UNITS/ML, 3 ML VIAL (humuLIN R) SUBCUT PRN ×2 (01:05→06:48)
[2023-02-24 01:39] VITALS: BP_SYST 130; PULSE 90; RESP 16; TEMP 99.6; O2SAT 95
[2023-02-24 04:47] LABS: BASOPHILS % (AUTO) 0.1 % (0.0-2.0); EOSINOPHILS # (AUTO) 0.2 K/uL (0.0-0.4); EOSINOPHILS % (AUTO) 1.9 % (0.0-4.0); HEMOGLOBIN 11.1 g/dL (12.0-16.0); LYMPHOCYTES # (AUTO) 0.8 K/uL (1.0-5.5); LYMPHOCYTES % (AUTO) 8.8 % (20.5-51.5); MEAN CORPUSCULAR HEMOGLOBIN 31 pg (27-31); MEAN CORPUSCULAR HGB CONC 33 % (32-36); MEAN CORPUSCULAR VOLUME 95 fL (79.0-98.0); MONOCYTES # (AUTO) 0.7 K/uL (0.0-1.0); MONOCYTES % (AUTO) 8.1 % (1.7-9.3); NEUTROPHILS # (AUTO) 7.2 K/uL (1.8-7.7); NEUTROPHILS % (AUTO) 81.1 % (40.0-70.0); PLATELET COUNT (AUTO) 254 K/uL (130-430); RED BLOOD CELL COUNT(AUTO) 3.58 MIL/uL (4.2-6.2); RED CELL DISTRIBUTION WIDTH 13.7 % (9.0-15.0); WHITE BLOOD COUNT (AUTO) 8.9 K/uL (4.8-10.8)
[2023-02-24 05:01] LABS: CALCIUM 7.8 mg/dL (8.4-11.0); CREATININE 0.44 mg/dL (0.55-1.30); PHOSPHORUS 1.9 mg/dL (2.7-4.5); POTASSIUM 3.1 mmol/L (3.5-5.1); TOTAL BILIRUBIN 0.3 mg/dL (0.0-1.0); TOTAL PROTEIN, SERUM 5.9 g/dL (6.4-8.3)
[2023-02-24] MEDS: PIPERACILLIN/TAZO 3.375 GM in NS 50 ML IV SCH ×3 (06:26→22:44)
[2023-02-24] MEDS: LR 1,000 ML IV SCH (06:37)
[2023-02-24] MEDS: HYDROmorphone 1 MG/ML INJ. CARTRIDGE IVP PRN (06:44)
[2023-02-24 08:00] VITALS: BP_SYST 157; PULSE 96; RESP 18; TEMP 97.8; O2SAT 97
[2023-02-24] MEDS: SIMETHICONE 80 MG TAB.CHEW PO SCH ×3 (09:45→22:40)
[2023-02-24] MEDS ORDERED: KCL 40 mEq in 100 mL (PREMIX) 100 ML IV ONE (11:15)
[2023-02-24 12:00] VITALS: BP_SYST 155; PULSE 94; RESP 18; TEMP 98.9; O2SAT 96
[2023-02-24] MEDS ORDERED: KETOROLAC TROMETHAMINE 15 MG VIAL IVP ONE (12:00)
[2023-02-24] MEDS: POTASSIUM CHLORIDE 20 mEq in 100 mL (PREMIX) 100 ML x 2 doses IV SCH ×2 (12:48→14:48)
[2023-02-24 13:52] VITALS: O2SAT 96
[2023-02-24] MEDS: traMADol HCL HCL 50 MG TABLET (ULTRAM) PO SCH ×2 (14:40→22:42)
[2023-02-24 16:00] VITALS: BP_SYST 151; PULSE 97; RESP 20; TEMP 97; O2SAT 96
[2023-02-24 20:00] VITALS: BP_SYST 152; PULSE 98; RESP 18; TEMP 97.8; O2SAT 96
[2023-02-24] MEDS ORDERED: POTASSIUM ACETATE IV SCH ×8 (21:00)
[2023-02-24] MEDS ORDERED: SODIUM ACETATE IV SCH ×8 (21:00)
[2023-02-24] MEDS ORDERED: TPN PERIPHERAL IV SCH ×8 (21:00)
[2023-02-24] MEDS ORDERED: [UNRECOGNIZED DRUG - OTHER] IV SCH ×8 (21:00)
[2023-02-24] MEDS: SENNOSIDES/DOCUSATE SODIUM 1 TAB TABLET(SENOKOT-S) PO SCH (22:40)
[2023-02-24] MEDS: FAT EMULSIONS 250 ML IV SCH (22:47)
[2023-02-25] VITALS (7 sets, daily range): BP systolic 118–144; PULSE 67–98; RESP 16–18; TEMP 97.1–98.7; O2SAT 96–98
[2023-02-25 05:08] LABS: BASOPHILS % (AUTO) 0.2 % (0.0-2.0); EOSINOPHILS # (AUTO) 0.1 K/uL (0.0-0.4); HEMATOCRIT 35.1 % (36-48); HEMOGLOBIN 11.6 g/dL (12.0-16.0); LYMPHOCYTES # (AUTO) 1.1 K/uL (1.0-5.5); MEAN CORPUSCULAR HEMOGLOBIN 31 pg (27-31); MEAN CORPUSCULAR HGB CONC 33 % (32-36); MEAN CORPUSCULAR VOLUME 93 fL (79.0-98.0); MONOCYTES % (AUTO) 9.2 % (1.7-9.3); NEUTROPHILS # (AUTO) 8.8 K/uL (1.8-7.7); NEUTROPHILS % (AUTO) 79.6 % (40.0-70.0); PLATELET COUNT (AUTO) 291 K/uL (130-430); RED BLOOD CELL COUNT(AUTO) 3.75 MIL/uL (4.2-6.2); WHITE BLOOD COUNT (AUTO) 11.1 K/uL (4.8-10.8)
[2023-02-25 05:45] LABS: ALBUMIN 2.1 g/dL (3.4-4.8); CALCIUM 8.7 mg/dL (8.4-11.0); CREATININE 0.33 mg/dL (0.55-1.30); PHOSPHORUS 3.4 mg/dL (2.7-4.5); POTASSIUM 3.3 mmol/L (3.5-5.1); TOTAL BILIRUBIN 0.3 mg/dL (0.0-1.0); TOTAL PROTEIN, SERUM 6.3 g/dL (6.4-8.3)
[2023-02-25] MEDS: traMADol HCL HCL 50 MG TABLET (ULTRAM) PO SCH ×3 (06:05→21:09)
[2023-02-25] MEDS: PIPERACILLIN/TAZO 3.375 GM in NS 50 ML IV SCH ×3 (06:06→21:09)
[2023-02-25] MEDS: LR 1,000 ML IV SCH ×2 (06:07→15:34)
[2023-02-25] MEDS: SIMETHICONE 80 MG TAB.CHEW PO SCH ×3 (08:32→21:09)
[2023-02-25] MEDS: INSULIN REGULAR, HUMAN 100 UNITS/ML, 3 ML VIAL (humuLIN R) SUBCUT PRN (11:40)
[2023-02-25] MEDS ORDERED: [UNRECOGNIZED DRUG - OTHER] IV SCH ×8 (21:00)
[2023-02-25] MEDS ORDERED: POTASSIUM ACETATE IV SCH ×8 (21:00)
[2023-02-25] MEDS ORDERED: TPN PERIPHERAL IV SCH ×8 (21:00)
[2023-02-25] MEDS ORDERED: SODIUM ACETATE IV SCH ×8 (21:00)
[2023-02-25] MEDS: ENOXAPARIN SODIUM 30 MG/0.3 ML SYRINGE SUBCUT SCH (21:08)
[2023-02-25] MEDS: SENNOSIDES/DOCUSATE SODIUM 1 TAB TABLET(SENOKOT-S) PO SCH (21:09)
[2023-02-26] VITALS (7 sets, daily range): BP systolic 116–125; PULSE 76–94; RESP 16–18; TEMP 97.5–98.6; O2SAT 96–100
[2023-02-26] MEDS: LR 1,000 ML IV SCH (00:52)
[2023-02-26] MEDS: PIPERACILLIN/TAZO 3.375 GM in NS 50 ML IV SCH ×3 (05:45→21:09)
[2023-02-26] MEDS: traMADol HCL HCL 50 MG TABLET (ULTRAM) PO SCH ×3 (05:46→21:09)
[2023-02-26 06:00] LABS: BASOPHILS % (AUTO) 0.3 % (0.0-2.0); EOSINOPHILS # (AUTO) 0.2 K/uL (0.0-0.4); HEMATOCRIT 34.8 % (36-48); HEMOGLOBIN 11.6 g/dL (12.0-16.0); LYMPHOCYTES # (AUTO) 1.9 K/uL (1.0-5.5); LYMPHOCYTES % (AUTO) 16.7 % (20.5-51.5); MEAN CORPUSCULAR HEMOGLOBIN 31 pg (27-31); MEAN CORPUSCULAR HGB CONC 33 % (32-36); MEAN CORPUSCULAR VOLUME 94 fL (79.0-98.0); MONOCYTES # (AUTO) 1.1 K/uL (0.0-1.0); MONOCYTES % (AUTO) 10.1 % (1.7-9.3); NEUTROPHILS # (AUTO) 7.8 K/uL (1.8-7.7); NEUTROPHILS % (AUTO) 70.9 % (40.0-70.0); PLATELET COUNT (AUTO) 331 K/uL (130-430); RED BLOOD CELL COUNT(AUTO) 3.72 MIL/uL (4.2-6.2); RED CELL DISTRIBUTION WIDTH 14.1 % (9.0-15.0); WHITE BLOOD COUNT (AUTO) 11.1 K/uL (4.8-10.8)
[2023-02-26 06:40] LABS: ALBUMIN 2.4 g/dL (3.4-4.8); CALCIUM 8.8 mg/dL (8.4-11.0); CREATININE 0.4 mg/dL (0.55-1.30); PHOSPHORUS 4.7 mg/dL (2.7-4.5); POTASSIUM 3.3 mmol/L (3.5-5.1); TOTAL BILIRUBIN 0.4 mg/dL (0.0-1.0); TOTAL PROTEIN, SERUM 6.4 g/dL (6.4-8.3)
[2023-02-26] MEDS: SIMETHICONE 80 MG TAB.CHEW PO SCH ×3 (08:30→21:08)
[2023-02-26] MEDS ORDERED: POTASSIUM CHLORIDE 20 MEQ TAB.PRT.SR PO ONE (10:30)
[2023-02-26] MEDS: SENNOSIDES/DOCUSATE SODIUM 1 TAB TABLET(SENOKOT-S) PO SCH (21:08)
[2023-02-26] MEDS: ENOXAPARIN SODIUM 30 MG/0.3 ML SYRINGE SUBCUT SCH (21:09)
[2023-02-27 00:17] VITALS: BP_SYST 114; PULSE 87; RESP 13; TEMP 97; O2SAT 98
[2023-02-27] MEDS: LR 1,000 ML IV SCH (01:00)
[2023-02-27 05:12] LABS: BASOPHILS % (AUTO) 0.4 % (0.0-2.0); EOSINOPHILS # (AUTO) 0.3 K/uL (0.0-0.4); EOSINOPHILS % (AUTO) 3.7 % (0.0-4.0); HEMOGLOBIN 10.8 g/dL (12.0-16.0); LYMPHOCYTES # (AUTO) 1.6 K/uL (1.0-5.5); LYMPHOCYTES % (AUTO) 18.7 % (20.5-51.5); MEAN CORPUSCULAR HEMOGLOBIN 31 pg (27-31); MEAN CORPUSCULAR HGB CONC 34 % (32-36); MEAN CORPUSCULAR VOLUME 93 fL (79.0-98.0); MONOCYTES # (AUTO) 0.9 K/uL (0.0-1.0); MONOCYTES % (AUTO) 10.5 % (1.7-9.3); NEUTROPHILS # (AUTO) 5.8 K/uL (1.8-7.7); NEUTROPHILS % (AUTO) 66.7 % (40.0-70.0); PLATELET COUNT (AUTO) 344 K/uL (130-430); RED BLOOD CELL COUNT(AUTO) 3.44 MIL/uL (4.2-6.2); RED CELL DISTRIBUTION WIDTH 13.7 % (9.0-15.0); WHITE BLOOD COUNT (AUTO) 8.6 K/uL (4.8-10.8)
[2023-02-27 05:29] LABS: CALCIUM 8.3 mg/dL (8.4-11.0); CREATININE 0.46 mg/dL (0.55-1.30); POTASSIUM 3.7 mmol/L (3.5-5.1)
[2023-02-27] MEDS: traMADol HCL HCL 50 MG TABLET (ULTRAM) PO SCH ×2 (05:29→13:44)
[2023-02-27] MEDS: PIPERACILLIN/TAZO 3.375 GM in NS 50 ML IV SCH (05:30)
[2023-02-27 08:00] VITALS: BP_SYST 103; PULSE 89; RESP 14; TEMP 97.7; O2SAT 96
[2023-02-27] MEDS: SIMETHICONE 80 MG TAB.CHEW PO SCH ×2 (10:04→13:44)
[2023-02-27 11:30] VITALS: BP_SYST 107; PULSE 92; RESP 18; TEMP 98.4; O2SAT 97
[2023-02-27] MEDS ORDERED: TRAM50TA2 PO (13:34)
[2023-02-27] MEDS ORDERED: LEVO250T73 PO (13:39)
[2023-02-27 16:00] VITALS: BP_SYST 105; PULSE 91; RESP 18; TEMP 97.9; O2SAT 95
[2023-02-27] MEDS: ENOXAPARIN SODIUM 30 MG/0.3 ML SYRINGE SUBCUT SCH (18:12)
[2023-02-27 18:43] VITALS: BP_SYST 105; PULSE 91; RESP 18; TEMP 97.9; O2SAT 95
== END 2023-02-27 20:25 | disposition home or self-care (01) | DRG 329 ==
LOC: SED 16:09 → SIC 19:25 → STU 20:40 → SMU 02-22 10:23
PROVIDERS: ADMIT Specialist; ATTEND Specialist
PROC: 0DBF0ZZ Excision of Right Large Intestine, Open Approach (ICD-10-PCS; 2023-02-20)
PROC: 0DBB0ZZ Excision of Ileum, Open Approach (ICD-10-PCS; principal; 2023-02-20 20:49)
DX: K63.1 Perforation of intestine (nontraumatic) (principal); K65.9 Peritonitis, unspecified; K56.7 Ileus, unspecified; E44.1 Mild protein-calorie malnutrition; E03.9 Hypothyroidism, unspecified; E78.5 Hyperlipidemia, unspecified; Z90.49 Acquired absence of other specified parts of digestive tract; Z68.23 Body mass index [BMI] 23.0-23.9, adult
CPT/HCPCS: 36415; 71045; 74018; 76376; 80048; 80053; 81000; 82962; 83605; 83735; 84100; 84478; 85007; 85025; 85027; 85610-TC; 85730-TC; 86886; 86900; 86901; 87040; 88307; 93005; 94010; 94640; 94660; 94760; 96365; 96367; 96368; 96375; 97110-GP; 97116-GP; 97163-GP; 97530-GP; 99285; C9290; G0378; J0131; J1170; J1650; J1815; J1885; J1956; J2370; J2543; J2704; J3010; J3465; J3480; J3490; J7030; J7120

== ENCOUNTER 2023-06-15 07:25 | Day surgery (SDC) | payer OTHER ==
[~2023-06-15] VITALS: Ht 149.9 cm; Wt 42.6 kg
[~2023-06-15 07:25] MED LIST changes: +LEVO250T73 PO; -METR-154 PO; +TRAM50TA2 PO
[2023-06-15] MEDS ORDERED: MIDAZOLAM HCL 5 MG/5 ML VIAL ONE (10:05)
[2023-06-15] MEDS ORDERED: fentaNYL CITRATE/PF 100 MCG/2 ML AMP ONE (10:05)
[2023-06-15 10:10] VITALS: O2SAT 100
[2023-06-15 18:45] VITALS: BP_SYST 101; PULSE 70; RESP 16
== END 2023-06-15 12:15 | disposition home or self-care (01) ==
LOC: SDS 07:25 → SMU 07:26 → SDS 12:15
PROVIDERS: ATTEND Internal Medicine Gastroenterology
DX: R10.31 Right lower quadrant pain (principal); K63.3 Ulcer of intestine; K64.8 Other hemorrhoids; R93.89 Abnormal findings on diagnostic imaging of other specified body structures; R79.89 Other specified abnormal findings of blood chemistry; K63.5 Polyp of colon; Z98.0 Intestinal bypass and anastomosis status; Z79.899 Other long term (current) drug therapy
CPT/HCPCS: 45380; 88305; 99152; 99153; G0378; J2250; J3010